=== PATIENT | female | born 1955 | race Caucasian/White ===

== ENCOUNTER 2024-12-16 10:12 | Day surgery (SDC) | payer MEDICARE, SELFPAY ==
[2024-12-16] VITALS (20 sets, daily range): BP systolic 92–176; BP diastolic 56–94; PULSE 63–89; RESP 14–20; TEMP 35.9–37.3; O2SAT 94–99; BMI 20.6
--- NOTE | 2024-12-16 12:10 | W.PM.H&PU ---
History & Physical Update History & Physical Update H&P Reviewed and patient assessed: No changes noted
[2024-12-16] MEDS: ACETAMINOPHEN 500 MG TABLET 1000 MG PO ×2 (12:12→18:37)
[2024-12-16] MEDS: OXYCODONE (CR) 10 MG TAB.ER.12H PO (12:12)
[2024-12-16] MEDS: fentaNYL 100 MCG/2 ML inj IVP (13:07)
[2024-12-16] MEDS: MIDAZOLAM HCL 1 MG/ML inj IVP (13:07)
--- NOTE | 2024-12-16 13:17 | SUR.PREOP ---
TIME?OUT:?1307, left knee PT/RN/MDA?VERIFICATION?OF?SURGICAL?SITE,?PROCEDURE,?AND?CONSENT OBTAINED?PRIOR?TO?INVASIVE?PROCEDURE.
[2024-12-16] MEDS: CEFAZOLIN 2 GM in 0.9 % SODIUM CHLORIDE Mini-bag 100 ML IVPB (13:30)
[2024-12-16] MEDS: TRANEXAMIC ACID 100 MG/ML INJ 1000 MG IV (13:30)
--- NOTE | 2024-12-16 13:31 | CRLHL7_ITS ---
For Patients: As a result of the Cures Act, medical imaging exams and procedure reports are released immediately into your electronic medical record. You may view this report before your referring provider. If you have questions, please contact your health care provider. Indication: Status post knee arthroplasty. Technique: AP and lateral views of the left knee. Comparison: Left knee radiograph 11/26/2024 Findings: Interval placement of left 3 component cemented knee arthroplasty. Postoperative changes within the left knee soft tissues. No other retained radiopaque metallic surgical foreign body. Impression: Status post placement of left knee replacement. Dictated by Akin Rodríguez MD @ 12/17/2024 2:26:20 PM (Electronically Signed)
[2024-12-16] MEDS: LACTATED RINGERS 1000 ML 1,000 ML 100 ML IV (13:55)
--- NOTE | 2024-12-16 14:12 | P.NB_ITS ---
Nerve Block Nerve Block Time Seen by Provider: 13:10 Date Seen: 12/16/24 Type of block requested by surgeon for post-operative analgesia: geniculars Side: left Time out performed: Yes Verification of patient name: Yes Verification of date of : Yes Site marking: site marked Name of person performing procedure: Hector Continuous monitoring Was continuous monitoring of O2 sat, B/P, cardiac rehab nurse, recorded every 15 minutes?: Yes Procedure Checklist: sterile prep, needles and gloves Ultrasound guided. Images saved: Yes Medications given in 5ml increments after negative aspiration: Marcaine %: 0.25 mL: 9 Needle gauge: 25 Patient tolerated procedure well: Yes Block Charges Block Charge (with Pro Fee): Genicular Nerve Block
--- NOTE | 2024-12-16 14:13 | P.NB_ITS ---
Nerve Block Nerve Block Time Seen by Provider: 13:10 Date Seen: 12/16/24 Type of block requested by surgeon for post-operative analgesia: adductor canal Side: left Time out performed: Yes Verification of patient name: Yes Verification of date of : Yes Site marking: site marked Name of person performing procedure: Hector Continuous monitoring Was continuous monitoring of O2 sat, B/P, radiation monitor, recorded every 15 minutes?: Yes Procedure Checklist: sterile prep, needles and gloves Ultrasound guided. Images saved: Yes Medications given in 5ml increments after negative aspiration: Marcaine %: 0.25 mL: 15 Needle gauge: 20 Precedex (mcg): 25 Patient tolerated procedure well: Yes Block Charges Block Charge (with Pro Fee): Femoral Nerve Use of Ultrasound Machine for Block: Yes- US Guidance/pain block
--- NOTE | 2024-12-16 14:13 | P.ANES_ITS ---
Anesthesia Charges Start Date/Time Anesthesia Start Date: 12/16/24 Anesthesia Start Time: 13:16 Stop Date/Time Anesthesia Stop Date: 12/16/24 Anesthesia Stop Time: 15:33 Summary Extremes of Age - Over 70 or under 1: MDA Coding CPT Codes CPT Codes: ANESTH KNEE ARTHROPLASTY - 46511 ([id number]) P2 - PATIENT W/MILD SYST DISEASE, QK - TAX COMMISSIONER 2-4 CNCRNT ANES PROC, QX - POULTRY FEED SUPERVISOR SVC W/ MD MED DIRECTION Additional Codes: Summary - Extremes of Age - Over 70 or under 1: MDA ([id number])
--- NOTE | 2024-12-16 14:13 | W.ANESCHARGE ---
Anesthesia Charges Start Date/Time Anesthesia Start Date: 12/16/24 Anesthesia Start Time: 13:16 Stop Date/Time Anesthesia Stop Date: 12/16/24 Anesthesia Stop Time: 15:33 Summary Extremes of Age - Over 70 or under 1: MDA Coding CPT Codes CPT Codes: ANESTH KNEE ARTHROPLASTY - 75482 ([id number]) P2 - PATIENT W/MILD SYST DISEASE, QK - HALL WORKER 2-4 CNCRNT ANES PROC, QX - DIRECT ENTRY MIDWIFE SVC W/ MD MED DIRECTION Additional Codes: Summary - Extremes of Age - Over 70 or under 1: MDA ([id number])
--- NOTE | 2024-12-16 15:00 | PM.ORPRC ---
Procedure Note Date of procedure: 12/16/24 Procedure: PREOPERATIVE DIAGNOSIS: 1. Left knee osteoarthritis, primary, severe POSTOPERATIVE DIAGNOSIS: 1. Left knee osteoarthritis, primary, severe PROCEDURE: 1. Left total knee arthroplasty - subvastus; modified 22 - 66% added time and difficulty for this case due to extremely poor/soft bone quality which required extreme caution so as not to avulse collateral ligaments and to maintain structure for TKA implants. In addition, this required stemming both the femoral and tibial component to allow reinforced support for the extremely soft bone. SURGEON: Stanislav Hearn MD. PRINCIPAL NETWORK ENGINEER: PATRICIA Waldron - Of note, a skilled assistant county attorney was critical for this case to aid in patient positioning, tissue retraction, limb manipulation/positioning, and closure. ANESTHESIA: Spinal anesthetic EBL: 50ml IMPLANTS: DePuy J&J all cemented TKA - Attune PS femur size 4 (14 x 50 mm stem) Size 3 tibia (30g89ra stem) 5 poly spacer 35mm patella TOURNIQUET: 100 min at 250 torr COMPLICATIONS: None evident INDICATIONS: The patient is a pleasant 69-year-old female who has experienced severe left knee pain and difficulty bearing weight. Workup included x-rays which revealed severe osteoarthrosis in the knee. Given the deformity, the dysfunction, and the pain, as well as the failure of nonoperative management, recommendation was made for surgery. FINDINGS: Full-thickness chondral loss diffusely throughout the patellofemoral compartment. To lesser degree medial and lateral compartments, but there was significant discoloration/darkening to the femoral and tibial intra-articular surfaces including the articular cartilage and meniscus and even some of the capsule. The anterior distal femoral cortex was concave due to the severe patellofemoral wear. The patella was extremely thin measuring just 10 mm the far medial facet, 16 in the median ridge and 14 on the lateral facet prior to preparation. The cancellous bone and even the cortical bone after making the femoral and tibial cuts was extremely soft and more like a sponge. It did not have great structural integrity, thus the decision for stemming both the femoral and tibial components. DESCRIPTION OF PROCEDURE: Following a thorough discussion of risks, benefits, and alternatives consent was obtained and the left knee was marked. The patient was brought to the operating room and placed supine on the operating table. Induction of anesthesia was undertaken. 1 g IV Ancef and 1 g tranexamic acid was administered within 1 hr of incision preoperatively. Proper time-out was performed identifying proper patient, site, procedure. The operative extremity was prepped and draped in the appropriate sterile fashion using ChloraPrep after the patient was positioned supine with all bony prominences well padded. A longitudinal, anterior, midline skin incision was made starting approximately 3cm proximal to the superior pole of the patella and advanced distal to the tibial tubercle. A subvastus approach was utilized. A medial subperiosteal sleeve was created with knife, russo elevator and curved osteotome. The retropatellar fatpad was resected and the synovium in the suprapatellar pouch excised to visualize the anterior femoral cortex. The patella was initially measured and found have a thickness consistent with that noted above (16 mm at the thickest portion and 10 mm on the medial facet). It was resected back to approximately 13.5 mm. It was sized to be a best fit with as noted above. This was drilled, trial placed. All trials were placed and found to have an excellent stability and balance. Femoral preparation was performed via an intramedullary guide. Step drill allowed access into the femoral canal. The distal cutting guide was placed with 5? of valgus and 10 mm cut on the distal femur. Femur was sized using a posterior referencing guide as well as referencing trans epicondylar axis and Whitesides line in 5 ? of external rotation. This found have a best fit with the sizing noted above. The 4 in 1 cutting block was then placed, and the distal femur shaped accordingly. Initially, the standard box cut was created but the cancellous bone was found to be tremendously soft and more like a sponge. Therefore, decision was made to perform stemmed femoral and tibial components. The revision femoral system was then applied, cut, and prepared with the plan for a 50 mm by 14 mm diameter stem. We turned our attention to the proximal tibia. Extramedullary guide was utilized for cutting with the goal of being 90 degree cut from the mechanical axis of the tibia in the varus/valgus plane utilizing tibial crest as the primary alignment. Initially a 4 mm resection was performed from the medial tibial plateau. Ultimately, balancing was achieved in both flexion and extension in both varus and valgus. The knee was able to achieve full extension as well comfortably. Again because of the extremely soft, spongy cancellous and even cortical bone after creating the proximal tibial cut, stemmed tibial component was prepared. At this stage, trial implants were removed, the knee was thoroughly irrigated with normal saline, and the cement was mixed. After irrigation, the knee was thoroughly dried, and cement placed, with the real tibial and femoral implants placed along with the patella. Trial poly spacer was placed and confirmed to have excellent range of motion and full extension, and the real poly spacer opened and inserted. All extra cement was removed, and a 3 min Betadine soak performed. Finally, a final irrigation round with normal saline was performed. Closure performed with 0 PDS and #0 Stratafix for the quad tendon/retinaculum. 2-0 Vicryl/Stratafix for the subcutaneous and 4-0 Monocryl for subcuticular closure. Dressings were applied and the patient was awoken from anesthesia after the tourniquet deflated and transferred the PACU in stable condition. A skilled assistant county attorney was critical for this case to aid in patient positioning, tissue retraction, bone exposure, limb manipulation/positioning, patient safety, and closure. * again, 66% added time and difficulty for this case due to extremely poor/soft bone quality which required extreme caution so as not to avulse collateral ligaments and to maintain structure for TKA implants. In addition, this required stemming both the femoral and tibial component to allow reinforced support for the extremely soft bone. PLAN: 1. Weight bear as tolerated operative extremity. 2. 23 hr perioperative antibiotics. 3. Ice. 4. PT/OT consults for ambulation assistance/mobility education. 5. Social work consult for discharge planning. 6. DVT prophylaxis with at SCDs and aspirin twice daily.
--- NOTE | 2024-12-16 15:34 | P.ANES_ITS ---
Anesthesia Charges Start Date/Time Anesthesia Start Date: 12/16/24 Anesthesia Start Time: 13:16 Stop Date/Time Anesthesia Stop Date: 12/16/24 Anesthesia Stop Time: 15:33 Summary Extremes of Age - Over 70 or under 1: RADIO COMMENTATOR Coding CPT Codes CPT Codes: ANESTH KNEE ARTHROPLASTY - 24120 ([id number]) P2 - PATIENT W/MILD SYST DISEASE, QX - RADIO COMMENTATOR SVC W/ MD MED DIRECTION, QK - COMPUTERIZED MACHINE FABRIC CUTTER 2-4 CNCRNT ANES PROC Additional Codes: Summary - Extremes of Age - Over 70 or under 1: RADIO COMMENTATOR ([id number])
--- NOTE | 2024-12-16 15:34 | W.ANESCHARGE ---
Anesthesia Charges Start Date/Time Anesthesia Start Date: 12/16/24 Anesthesia Start Time: 13:16 Stop Date/Time Anesthesia Stop Date: 12/16/24 Anesthesia Stop Time: 15:33 Summary Extremes of Age - Over 70 or under 1: LEAD PAINTER Coding CPT Codes CPT Codes: ANESTH KNEE ARTHROPLASTY - 90256 ([id number]) P2 - PATIENT W/MILD SYST DISEASE, QX - LEAD PAINTER SVC W/ MD MED DIRECTION, QK - PRECISION MACHINING INSTRUCTOR 2-4 CNCRNT ANES PROC Additional Codes: Summary - Extremes of Age - Over 70 or under 1: LEAD PAINTER ([id number])
[2024-12-16] MEDS: OXYCODONE 5 MG TABLET PO ×2 (17:46→20:42)
[2024-12-16] MEDS: LACTATED RINGERS 1000 ML 1,000 ML 75 ML IV (18:37)
[2024-12-16] MEDS: CEFAZOLIN 1 GM in 0.9 % SODIUM CHLORIDE Mini-bag 100 ML IVPB (19:39)
[2024-12-16] MEDS: SENNOSIDES 1 TAB TABLET 2 TAB PO (20:43)
[2024-12-16] MEDS: HYDROmorphone 0.5 mg/0.5 ml inj IVP (21:57)
--- NOTE | 2024-12-16 22:25 | PM.IMCN1 ---
Date of Consult Patient: Other Consult date: 12/16/24 Requesting Physician: Orthopedics Primary Care Provider: GURWINDER He Consult Narrative Narrative: Pennie Carvajal is a 69 year old female admitted to the hospital for left total knee arthroplasty. Procedure performed by Dr. Hearn. No complications. He has requested consultation for management of medical problems postoperatively. She reports generally doing well postoperatively. She still having some affect from her spinal anesthesia and so is not return to normal sensation and motion in her lower extremities. Pain is well controlled so far. Preoperatively she reports he was doing well. Preop evaluation by her primary care provider did not show any significant concerns for the perioperative management. She has also recently seen oncology about her recent diagnosis of CLL. Not having significant symptoms or complications so is currently being monitored without treatment. She has previous history of paroxysms of AFib/a flutter. She is on Eliquis for this. Eliquis has been held for 3 and half days prior to surgery. [facility] Medical History (Updated 12/16/24 @ 22:44 by Bridger Sterling MD) CLL (chronic lymphocytic leukemia) ?C91.10 - Chronic lymphocytic leukemia of B-cell type not having achieved remission (ICD-10) Paroxysmal atrial flutter ?I48.92 - Unspecified atrial flutter (ICD-10) Tear of meniscus of left knee ?S83.207A - Unspecified tear of unspecified meniscus, current injury, left knee, initial encounter (ICD-10) Eosinophilic esophagitis ?K20.0 - Eosinophilic esophagitis (ICD-10) Leukocytosis ?D72.829 - Elevated white blood cell count, unspecified (ICD-10) Lymphocytic leukemia ?C91.90 - Lymphoid leukemia, unspecified not having achieved remission (ICD-10) Osteoporosis ?M81.0 - Age-related osteoporosis without current pathological fracture (ICD-10) Leukopenia ?D72.819 - Decreased white blood cell count, unspecified (ICD-10) Breast mass ?N63.0 - Unspecified lump in unspecified breast (ICD-10) Alopecia ?L65.9 - Nonscarring hair loss, unspecified (ICD-10) Effusion, left knee ?M25.462 - Effusion, left knee (ICD-10) Surgical History (Updated 12/16/24 @ 22:39 by Bridger Sterling MD) History of arthroplasty of left knee ?Z96.652 - Presence of left artificial knee joint (ICD-10) History of arthroscopy of left knee ?Z98.890 - Other specified postprocedural states (ICD-10) History of cardioversion (07/07/23) ?Z92.89 - Personal history of other medical treatment (ICD-10) History of esophagogastroduodenoscopy (EGD) (10/14/13) ?Z98.890 - Other specified postprocedural states (ICD-10) History of tonsillectomy and adenoidectomy ?Z90.89 - Acquired absence of other organs (ICD-10) H/O umbilical hernia repair (06/20/17) ?Z98.890 - Other specified postprocedural states (ICD-10) ?Z87.19 - Personal history of other diseases of the digestive system (ICD-10) Social History (Updated 12/16/24 @ 22:41 by Bridger Sterling MD) Narrative: She lives with her . is healthcare power of compliance attorney. She lives in a split-level home and has stairs to go up to the kitchen and living room and did go down to the lower level where she plans to live as she recovers from surgery. She has a bedroom and bathroom on that level. She drinks alcohol about 4 times a week. She does not smoke. Code status is full What is your current living situation?: I presently have a place to live Problems where you live: no known problems In the past 12 months, utilities in danger of being shut off: no In past 12 months, lack of transportation kept you from medical appts, meetings, work, or getting things needed for daily living: no In the past 12 mos, have been you worried that your food would run out before you had money to buy more?: never true In the past 12 mos, the food you bought just didn't last and you didn't have money to buy more?: never true Smoking Status: Never smoker Do you use any of these nicotine containing products: None Second hand tobacco smoke exposure: No How often do you have a drink containing alcohol: 4 or more times a week Alcohol type: beer and wine How many standard drinks containing alcohol do you have on a typical day: 1 or 2 AUDIT-C Alcohol total score: 4 Non-prescribed substance use: denies use Caffeine: Yes How often does anyone, including family, friends and others, physically hurt you: never How often does anyone, including family, friends and others, insult or talk down to you: never How often does anyone, including family, friends and others, threaten you with harm: never How often does anyone, including family, friends and others, scream or curse at you: never Meds Home Medications and Allergies Home Medications ?Medication ?Instructions ?Recorded ?Confirmed ?Type apixaban 5 mg tablet (Eliquis) 5 mg PO BID 11/26/24 12/16/24 History omeprazole 20 mg capsule,delayed 20 mg PO DAILY 12/16/24 12/16/24 History release Allergies Allergy/AdvReac Type Severity Reaction Status Date / Time No Known Drug Allergies Allergy Verified 12/16/24 10:22 Exam Narrative: Exam Narrative: She is alert and appears in no distress. She gives her own history. Oropharynx is normal. Neck is supple without jugular venous distension. She does have small palpable nodes in the supraclavicular area particularly bilaterally. Respirations are clear to auscultation. Cardiovascular: S1, S2, regular rate and rhythm. Abdomen: Bowel sounds active. Abdomen is soft without tenderness or mass. Lower extremities without edema. She has intact pulses and her sensation and motion is returning from her spinal anesthesia. Const: Vital Signs, click to edit/add: Vital Signs - 24 hr 12/16/24 10:42 12/16/24 13:10 12/16/24 15:30 Temperature 99.2 F 97.4 F L Pulse Rate 86 89 66 Pulse Rate [Right Pulse Oximeter] Respiratory Rate 20 20 16 Blood Pressure 176/94 H 144/75 H 93/56 L Blood Pressure [Le ft Arm] Pulse Oximetry 96 98 95 Oxygen Delivery Me thod Room Air Nasal Cannula Room Air Oxygen Flow Rate 2 12/16/24 15:35 12/16/24 15:40 12/16/24 15:45 Temperature Pulse Rate 67 67 70 Pulse Rate [Right Pulse Oximeter] Respiratory Rate 14 14 14 Blood Pressure 92/61 99/64 119/75 Blood Pressure [Le ft Arm] Pulse Oximetry 94 94 95 Oxygen Delivery Me thod Room Air Room Air Room Air Oxygen Flow Rate 12/16/24 15:50 12/16/24 15:55 12/16/24 16:00 Temperature 97 F L Pulse Rate 64 65 63 Pulse Rate [Right Pulse Oximeter] Respiratory Rate 14 14 14 Blood Pressure 126/73 118/71 130/77 Blood Pressure [Le ft Arm] Pulse Oximetry 95 97 97 Oxygen Delivery Me thod Room Air Room Air Room Air Oxygen Flow Rate 12/16/24 16:15 12/16/24 16:15 Temperature 96.7 F L 96.7 F L Pulse Rate 66 Pulse Rate [Right Pulse Oximeter] 66 Respiratory Rate 16 16 Blood Pressure 145/80 H Blood Pressure [Le ft Arm] 145/80 H Pulse Oximetry 99 99 Oxygen Delivery Me thod Room Air Room Air Oxygen Flow Rate Documenting provider has reviewed patient's vital signs: yes Assessment and Plan Assessment and plan (1) History of arthroplasty of left knee: Problem comment: 12/16/2024, Dr. Hearn, no complications Status: Acute (2) Paroxysmal atrial flutter: Problem comment: Resume Eliquis postop day 1 in the morning. Status: Acute (3) CLL (chronic lymphocytic leukemia): Status: Acute Plan 69-year-old female admitted for knee arthroplasty. Will monitor complications of surgery, routine management of pain and routine therapy. Resume Eliquis if no significant bleeding problems postop day 1. Anticipate discharge to home with and daughter tomorrow. Total Time Spent Total Time Spent: Total time spent today is 40 minutes in reviewing outside records and discussing with patient and family ongoing evaluation and management of hip surgery, CLL, paroxysmal atrial flutter and other postoperative concerns
--- NOTE | 2024-12-16 22:58 | PC.NURSE ---
Pt doing well. Admitted to the floor at 1610. VSS. Pain controlled with ice and PRN medications. Pt denies nausea, tolerating oral intake well, saline locked. Pt ambulated to bathroom with assisted of two, tolerated well. Voiding without problems. Dressing had mild bloody drainage on bandage, no further drainage at this time. Resting well.
[2024-12-17 00:11] VITALS: BP 124/64; PULSE 73; RESP 16; TEMP 37.2; O2SAT 96
[2024-12-17] MEDS: ACETAMINOPHEN 500 MG TABLET 1000 MG PO ×2 (00:23→05:57)
[2024-12-17] MEDS: OXYCODONE 5 MG TABLET PO ×5 (00:24→08:38)
[2024-12-17] MEDS: HYDROmorphone 0.5 mg/0.5 ml inj IVP (02:55)
[2024-12-17] MEDS: CEFAZOLIN 1 GM in 0.9 % SODIUM CHLORIDE Mini-bag 100 ML IVPB (02:59)
[2024-12-17 03:00] VITALS: BP 126/81; PULSE 71; RESP 16; TEMP 36.6; O2SAT 97
[2024-12-17 06:26] LABS: Basophils Percent Auto 0.1 % (0.0-3.0); Eosinophils Percent Auto 0.4 % (0.0-7.0); Hematocrit 33.6 % (33.0-51.0); Hemoglobin* 11.1 gm/dL (12.0-16.0); Immature Granulocytes Pct Auto 0.2 %; Mean Corpuscular HGB Conc 33 gm/dL (32-36); Mean Corpuscular Hemoglobin 29 pg (26-34); Mean Corpuscular Volume 89 fL (80-100); Monocytes Percent Auto 4.2 % (0.0-11.0); Neutrophils Percent Auto 20.1 % (42.0-72.0); Platelet Count* 363 K/uL (140-440); RDW Coefficient of Variation % 14.4 % (11.5-15.5); Red Blood Count 3.79 m/uL (4.00-5.20)
[2024-12-17 06:41] LABS: Potassium* 4.1 mmol/L (3.6-5.1); Sodium* 134 mmol/L (135-149)
[2024-12-17] MEDS: OMEPRAZOLE 20 MG CAPSULE DR PO (06:43)
[2024-12-17 06:44] LABS: Blood Urea Nitrogen* 17 mg/dL (7-30); Creatinine* 0.6 mg/dL (0.5-1.5); Estimated Glomerular Filt Rate 97 ml/min
[2024-12-17 06:59] LABS: White Blood Count* 30.44 K/uL (4.50-11.00)
[2024-12-17 07:00] VITALS: BP 123/65; PULSE 83; RESP 16; TEMP 36.8; O2SAT 100
[2024-12-17 07:00] LABS: Slide Review Reflex Yes
[2024-12-17 07:02] LABS: Slide Review Acceptable Review (Acceptable)
--- NOTE | 2024-12-17 07:25 | PC.NURSE ---
End of shift report [id number]: VSS. Afebrile. Rates pain from a 2-7, pain meds offered and given with relief. Denies nausea. Tolerating reg diet. Left knee CMS is intact. Dressing is dry and intact. Scant amount of drainage noted at beginning of shift, area outlined on dressing. Drainage remained in outlined area throughout the shift. Ambulates A1, GB, W. Intermittent ice applied. Call light within reach.?
[2024-12-17] MEDS: SENNOSIDES 1 TAB TABLET 2 TAB PO (08:38)
[2024-12-17] MEDS: APIXABAN 5 MG TABLET PO (08:39)
[2024-12-17] MEDS: ONDANSETRON 2 MG/ML inj 4 MG IVP (09:33)
--- NOTE | 2024-12-17 09:52 | PM.ORPN ---
Subjective Subjective Date Seen: 12/17/24 Principal diagnosis: Status postop day 1 left total knee arthroplasty Interval history: Patient reports doing okay. No acute events over night. Pain managed with scheduled and PRN medications, ice. DVT prophylaxis: Apixaban 5 mg twice daily, due to paroxysmal AFib history, SCDs, walking. Denies fevers, chills, aches, N/V, CP, SOB/MEREDITH, or lightheadedness. Ortho Exam Narrative Exam Narrative: -Patient appears comfortable; no apparent acute distress -Alert and oriented times 3 -Operative knee mildly swollen; soft tissues supple; no ecchymosis; no erythematous streaking Warmth appropriate -Surgical dressing shows dried blood lower lateral aspect of the bandage, mid bandage, and more proximal aspect of the bandage. Dressing appears to be intact. -Bilateral calfs soft; no significant swelling, edema, tenderness, erythema, discoloration, warmth, or palpable cords -2+ DP/PT pulses, intact dermatomes and myotomes distally (5/5 strength) Const Vital Signs, click to edit/add: Vital Signs - 24 hr 12/16/24 10:42 12/16/24 13:10 12/16/24 15:30 Temperature 99.2 F 97.4 F L Pulse Rate 86 89 66 Pulse Rate [Right Pulse Oximeter] Respiratory Rate 20 20 16 Blood Pressure 176/94 H 144/75 H 93/56 L Blood Pressure [Left Arm] Pulse Oximetry 96 98 95 Oxygen Delivery Method Room Air Nasal Cannula Room Air Oxygen Flow Rate 2 12/16/24 15:35 12/16/24 15:40 12/16/24 15:45 Temperature Pulse Rate 67 67 70 Pulse Rate [Right Pulse Oximeter] Respiratory Rate 14 14 14 Blood Pressure 92/61 99/64 119/75 Blood Pressure [Left Arm] Pulse Oximetry 94 94 95 Oxygen Delivery Method Room Air Room Air Room Air Oxygen Flow Rate 12/16/24 15:50 12/16/24 15:55 12/16/24 16:00 Temperature 97 F L Pulse Rate 64 65 63 Pulse Rate [Right Pulse Oximeter] Respiratory Rate 14 14 14 Blood Pressure 126/73 118/71 130/77 Blood Pressure [Left Arm] Pulse Oximetry 95 97 97 Oxygen Delivery Method Room Air Room Air Room Air Oxygen Flow Rate 12/16/24 16:15 12/16/24 16:15 12/16/24 16:30 Temperature 96.7 F L 96.7 F L Pulse Rate 66 65 Pulse Rate [Right Pulse Oximeter] 66 Respiratory Rate 16 16 Blood Pressure 145/80 H 138/74 Blood Pressure [Left Arm] 145/80 H Pulse Oximetry 99 99 Oxygen Delivery Method Room Air Room Air Oxygen Flow Rate 12/16/24 16:45 12/16/24 17:00 12/16/24 17:15 Temperature Pulse Rate 69 69 75 Pulse Rate [Right Pulse Oximeter] Respiratory Rate Blood Pressure 144/68 H 155/77 H 145/72 H Blood Pressure [Left Arm] Pulse Oximetry Oxygen Delivery Method Oxygen Flow Rate 12/16/24 17:45 12/16/24 18:35 12/16/24 19:35 Temperature Pulse Rate 75 84 Pulse Rate [Right Pulse Oximeter] Respiratory Rate 16 Blood Pressure 159/83 H 132/70 132/75 Blood Pressure [Left Arm] Pulse Oximetry 97 Oxygen Delivery Method Oxygen Flow Rate 12/16/24 20:35 12/16/24 21:35 12/16/24 23:00 Temperature 97.8 F Pulse Rate 77 Pulse Rate [Right Pulse Oximeter] 73 Respiratory Rate 16 16 Blood Pressure 108/65 115/72 Blood Pressure [Left Arm] Pulse Oximetry 98 Oxygen Delivery Method Oxygen Flow Rate 12/16/24 23:00 12/17/24 00:11 12/17/24 03:00 Temperature 99 F 98 F Pulse Rate Pulse Rate [Right Pulse Oximeter] 73 71 Respiratory Rate 16 16 16 Blood Pressure Blood Pressure [Left Arm] 124/64 126/81 Pulse Oximetry 96 96 97 Oxygen Delivery Method Room Air Room Air Room Air Oxygen Flow Rate 12/17/24 07:00 12/17/24 07:00 12/17/24 07:00 Temperature 98.3 F Pulse Rate Pulse Rate [Right Pulse Oximeter] 83 83 Respiratory Rate 16 16 16 Blood Pressure Blood Pressure [Left Arm] 123/65 Pulse Oximetry 100 100 Oxygen Delivery Method Room Air Room Air Oxygen Flow Rate Assessment and Plan Assessment and plan (1) History of arthroplasty of left knee: Problem details: 12/16/2024, Dr. Hearn, no complications Status: Acute (2) Paroxysmal atrial flutter: Problem details: Resume Eliquis postop day 1 in the morning. Status: Acute (3) CLL (chronic lymphocytic leukemia): Status: Acute Plan - Complete 23 hour perioperative antibiotics. - PT/OT consult for education and assistance. - Social work consult for discharge planning - Prescribed analgesics as needed - DVT prophylaxis: Continue apixaban 5 mg twice daily, walking, and SCDs - remove bandage after 5 days, report to us if increased bleeding/drainage on the bandage - Anticipation is for discharge to home with family today 12/17/2024 if the patient remains medically stable, pain is controlled, and they are safe with mobilization.
--- NOTE | 2024-12-17 10:14 | W.PM.CROSSCO ---
Subjective Subjective Principal diagnosis: Status postop day 1 left total knee arthroplasty Interval history: I spoke with nursing staff. Patient is doing well. I have reviewed her labs from this morning. She has CLL. On her preop labs on 12/09/24, her CBC showed leukocytes of 35.7, today they are 22.8, stable and improving. Nothing further needs to happen before discharge today. Follow up as previously scheduled as outpatient for CLL.
--- NOTE | 2024-12-17 11:29 | PC.NURSE ---
Discharge: patient pleasant and cooperative. VSS. RA tolerating a reg diet. Dressing to knee C/D/I, active ice to OP site. PRN pain meds administered prior to therapies. Patient became nauseous and had two emesis during therapy. Zofran administered w/relief. Discharged today at 1100 to home accompanied by spouse. IV removed intact. Discharge instructions given and signed, patient verbalized understanding. Belongings sheet signed.
== END 2024-12-17 11:00 | disposition home or self-care (01) ==
LOC: OR 10:17 → MEDSURG 10:17
PROVIDERS: PCP Physician Assistant; Visit Provider Orthopaedic Surgery Sports Medicine
PROC: (CPT 27447; principal; 2024-12-16 12:15)
DX: M17.12 Unilateral primary osteoarthritis, left knee (principal); G89.18 Other acute postprocedural pain; I48.0 Paroxysmal atrial fibrillation; Z79.01 Long term (current) use of anticoagulants; I48.92 Unspecified atrial flutter; C91.10 Chronic lymphocytic leukemia of B-cell type not having achieved remission
CPT/HCPCS: 27447; 01402; 36415; 64447; 64454; 73560; 76942; 82565; 84132; 84295; 84520; 85025; 97110; 97116; 97162; 97165; 97530; 97535; 99100; A9270; C1776; J0665; J0690; J1100; J1171; J2250; J2371; J2405; J2704; J3010; J7120

== ENCOUNTER 2025-02-24 09:38 | Day surgery (SDC) | payer MEDICARE, SELFPAY ==
[2025-02-24] VITALS (26 sets, daily range): BP systolic 94–160; BP diastolic 60–87; PULSE 69–95; RESP 14–17; TEMP 36.1–37.2; O2SAT 95–100; BMI 18.8
[2025-02-24] MEDS: LACTATED RINGERS 1000 ML 1,000 ML 100 ML IV ×3 (10:38→13:45)
[2025-02-24] MEDS: SODIUM CHLORIDE 0.9 % (FLUSH) 10 ML SYRINGE IVF (10:38)
[2025-02-24] MEDS: OXYCODONE (CR) 10 MG TAB.ER.12H PO (10:38)
[2025-02-24] MEDS: ACETAMINOPHEN 500 MG TABLET 1000 MG PO ×3 (10:38→22:34)
[2025-02-24] MEDS: MIDAZOLAM HCL 1 MG/ML inj IVP (10:45)
--- NOTE | 2025-02-24 10:54 | SUR.PREOP ---
TIME?OUT:?1045 PT/RN/MDA?VERIFICATION?OF?SURGICAL?SITE,?PROCEDURE,?AND?CONSENT OBTAINED?PRIOR?TO?INVASIVE?PROCEDURE.
--- NOTE | 2025-02-24 11:10 | W.PM.H&PU ---
History & Physical Update History & Physical Update H&P Reviewed and patient assessed: No changes noted
--- NOTE | 2025-02-24 11:11 | CRLHL7_ITS ---
For Patients: As a result of the Cures Act, medical imaging exams and procedure reports are released immediately into your electronic medical record. You may view this report before your referring provider. If you have questions, please contact your health care provider. Indication: POSTOP Technique: Two views right knee Findings/Impression: Hardware from a right total knee arthroplasty is in satisfactory position. Bone alignment is normal. No sign of acute fracture. Postop changes are within normal limits. Dictated by Eber Harley MD @ 02/25/2025 11:16:04 AM (Electronically Signed)
[2025-02-24] MEDS: TRANEXAMIC ACID 100 MG/ML INJ 1000 MG IV (11:14)
--- NOTE | 2025-02-24 11:23 | W.PM.NB ---
Nerve Block Nerve Block Time Seen by Provider: 10:50 Date Seen: 02/24/25 Type of block requested by surgeon for post-operative analgesia: adductor canal Side: right Time out performed: Yes Verification of patient name: Yes Verification of date of : Yes Site marking: site marked Name of person performing procedure: Hector Continuous monitoring Was continuous monitoring of O2 sat, B/P, electronic device monitor, recorded every 15 minutes?: Yes Procedure Checklist: sterile prep, needles and gloves Ultrasound guided. Images saved: Yes Medications given in 5ml increments after negative aspiration: Marcaine %: 0.25 mL: 15 Needle gauge: 20 Precedex (mcg): 25 Patient tolerated procedure well: Yes Block Charges Block Charge (with Pro Fee): Femoral Nerve Use of Ultrasound Machine for Block: Yes- US Guidance/pain block
--- NOTE | 2025-02-24 11:23 | W.PM.NB ---
Nerve Block Nerve Block Time Seen by Provider: 10:50 Date Seen: 02/24/25 Type of block requested by surgeon for post-operative analgesia: geniculars Side: right Time out performed: Yes Verification of patient name: Yes Verification of date of : Yes Site marking: site marked Name of person performing procedure: Hector Continuous monitoring Was continuous monitoring of O2 sat, B/P, cardiac care nurse, recorded every 15 minutes?: Yes Procedure Checklist: sterile prep, needles and gloves Ultrasound guided. Images saved: Yes Medications given in 5ml increments after negative aspiration: Marcaine %: 0.25 mL: 9 Needle gauge: 25 Patient tolerated procedure well: Yes Block Charges Block Charge (with Pro Fee): Genicular Nerve Block
--- NOTE | 2025-02-24 11:24 | P.ANES_ITS ---
Anesthesia Charges Start Date/Time Anesthesia Start Date: 02/24/25 Anesthesia Start Time: 10:53 Stop Date/Time Anesthesia Stop Date: 02/24/25 Anesthesia Stop Time: 13:23 Summary Extremes of Age - Over 70 or under 1: MDA Coding CPT Codes CPT Codes: ANESTH KNEE ARTHROPLASTY - 41371 ([id number]) P2 - PATIENT W/MILD SYST DISEASE, QK - DOOR REPAIRER BUS 2-4 CNCRNT ANES PROC, QX - PRE KINDERGARTEN TEACHER SVC W/ MD MED DIRECTION Additional Codes: Summary - Extremes of Age - Over 70 or under 1: MDA ([id number])
--- NOTE | 2025-02-24 11:24 | W.ANESCHARGE ---
Anesthesia Charges Start Date/Time Anesthesia Start Date: 02/24/25 Anesthesia Start Time: 10:53 Stop Date/Time Anesthesia Stop Date: 02/24/25 Anesthesia Stop Time: 13:23 Summary Extremes of Age - Over 70 or under 1: MDA Coding CPT Codes CPT Codes: ANESTH KNEE ARTHROPLASTY - 20231 ([id number]) P2 - PATIENT W/MILD SYST DISEASE, QK - OPTICAL LENS MANUFACTURING TECH 2-4 CNCRNT ANES PROC, QX - CRIMINAL LAWYER SVC W/ MD MED DIRECTION Additional Codes: Summary - Extremes of Age - Over 70 or under 1: MDA ([id number])
--- NOTE | 2025-02-24 12:30 | PM.ORPRC ---
Procedure Note Date of procedure: 02/24/25 Procedure: PREOPERATIVE DIAGNOSIS: 1. Right knee osteoarthritis, primary, severe POSTOPERATIVE DIAGNOSIS: 1. Right knee osteoarthritis, primary, severe PROCEDURE: 1. Right total knee arthroplasty - subvastus; modifier 22. 50% added difficulty for this case due to stemming of the femoral and tibial components. This was warranted because of poor bone quality and erosion of the anterior femoral cortex due to the severe patellofemoral wear. The stemmed components required increased time, instrumentation, caution, and difficulty given the patient's small stature. SURGEON: Stanislav Hearn MD. APPIAN BPM DEVELOPER: PATRICIA Waldron - Of note, a skilled liaison inspection laboratory assistant was critical for this case to aid in patient positioning, tissue retraction, limb manipulation/positioning, and closure. ANESTHESIA: Spinal anesthetic IMPLANTS: DePuy J&J all cemented TKA - Attune PS revision femur CR as component size 5 with (14 x 50 mm stem) Revision tibial component size 3 with ([id number] stem) 5 mm poly spacer 35 mm patella TOURNIQUET: 90 minutes at 225 torr EBL: 50 ml COMPLICATIONS: None evident INDICATIONS: The patient is a pleasant 69-year-old female who has experienced severe right knee pain and difficulty bearing weight. Workup included x-rays which revealed severe osteoarthrosis in the knee. Given the deformity, the dysfunction, and the pain, as well as the failure of nonoperative management, recommendation was made for surgery. FINDINGS: Severe patellofemoral osteoarthrosis with significant erosion of the patella and erosion of the anterior femoral cortex. Notable degenerative meniscus pathology both medial and lateral. To lesser degree chondromalacia medial and lateral compartments. Heme arthrosis found upon entering the knee joint. Significant synovitis noted throughout the knee as well. Very poor bone quality warranting stems for both the femur and tibial component. DESCRIPTION OF PROCEDURE: Following a thorough discussion of risks, benefits, and alternatives consent was obtained and the right knee was marked. The patient was brought to the operating room and placed supine on the operating table. Induction of anesthesia was undertaken. 1 g IV Ancef and 1 g tranexamic acid was administered within 1 hr of incision preoperatively. Proper time-out was performed identifying proper patient, site, procedure. The operative extremity was prepped and draped in the appropriate sterile fashion using ChloraPrep after the patient was positioned supine with all bony prominences well padded. A longitudinal, anterior, midline skin incision was made starting approximately 3cm proximal to the superior pole of the patella and advanced distal to the tibial tubercle. A subvastus approach was utilized. A medial subperiosteal sleeve was created with knife, russo elevator and curved osteotome. The retropatellar fatpad was resected and the synovium in the suprapatellar pouch excised to visualize the anterior femoral cortex. Femoral preparation was performed via an intramedullary guide. Step drill allowed access into the femoral canal. The distal cutting guide was placed with 5? of valgus and 10 mm cut on the distal femur. Femur was sized using a posterior referencing guide in 3? of external rotation. This found have a best fit with the sizing noted above. The 4 in 1 cutting block was then placed, and the distal femur shaped accordingly. The box cut was then created and the trial implant inserted to confirm appropriate fit. We turned our attention to the proximal tibia. Extramedullary guide was utilized for cutting with the goal of being 90 degree cut from the mechanical axis of the tibia in the varus/valgus plane utilizing tibial crest as the primary alignment. Initially a 3 mm resection was performed from the medial tibial plateau. An additional 4 mm to require resection to a true appropriate balance in both flexion and extension. Ultimately, balancing was achieved in both flexion and extension in both varus and valgus. The knee was able to achieve full extension as well comfortably. The patella was initially measured and found have a thickness of 15 mm. It was resected back to approximately 12.5 mm. It was sized to be a best fit with as noted above. This was drilled, trial placed. All trials were placed and found to have an excellent stability and balance. At this stage, trial implants were removed, the knee was thoroughly irrigated with normal saline, and the cement was mixed. After irrigation, the knee was thoroughly dried, and cement placed, with the real tibial and femoral implants placed along with the patella. Trial poly spacer was placed and confirmed to have excellent range of motion and full extension, and the real poly spacer opened and inserted. All extra cement was removed, and a 3 min Betadine soak performed. Finally, a final irrigation round with normal saline was performed. Closure performed with 0 Vicryl and #0 Stratafix for the quad tendon/retinaculum. 2-0 Vicryl for the subcutaneous and 4-0 Stratafix for subcuticular closure. Dressings were applied and the patient was awoken from anesthesia after the tourniquet deflated and transferred the PACU in stable condition. A skilled liaison inspection laboratory assistant was critical for this case to aid in patient positioning, tissue retraction, bone exposure, limb manipulation/positioning, patient safety, and closure. * Again, 50% added difficulty for this case due to stemming of the femoral and tibial components. This was warranted because of poor bone quality and erosion of the anterior femoral cortex due to the severe patellofemoral wear. The stemmed components required increased time, instrumentation, caution, and difficulty given the patient's small stature. PLAN: 1. Weight bear as tolerated operative extremity. 2. 23 hr perioperative antibiotics. 3. Ice. 4. PT/OT consults for ambulation assistance/mobility education. 5. Social work consult for discharge planning. 6. DVT prophylaxis with at SCDs and aspirin twice daily.
--- NOTE | 2025-02-24 13:24 | P.ANES_ITS ---
Anesthesia Charges Start Date/Time Anesthesia Start Date: 02/24/25 Anesthesia Start Time: 10:53 Stop Date/Time Anesthesia Stop Date: 02/24/25 Anesthesia Stop Time: 13:23 Coding CPT Codes CPT Codes: ANESTH KNEE ARTHROPLASTY - 75031 ([id number]) P2 - PATIENT W/MILD SYST DISEASE, QK - FARROWING MANAGER 2-4 CNCRNT ANES PROC, QX - RAMP SUPERVISOR SVC W/ MD MED DIRECTION
--- NOTE | 2025-02-24 13:24 | W.ANESCHARGE ---
Anesthesia Charges Start Date/Time Anesthesia Start Date: 02/24/25 Anesthesia Start Time: 10:53 Stop Date/Time Anesthesia Stop Date: 02/24/25 Anesthesia Stop Time: 13:23 Coding CPT Codes CPT Codes: ANESTH KNEE ARTHROPLASTY - 98432 ([id number]) P2 - PATIENT W/MILD SYST DISEASE, QK - CAR HOSTLER 2-4 CNCRNT ANES PROC, QX - HEATING AND VENTILATING DRAFTER SVC W/ MD MED DIRECTION
--- NOTE | 2025-02-24 15:20 | P.IMCN_ITS ---
Date of Consult Patient: Other ([place]) Consult date: 03/26/25 Requesting Physician: Orthopedics Primary Care Provider: GURWINDER He Consult Narrative Reason for consult: afib, CLL Narrative: Pennie Carvajal is a 69 year old female with known CLL and atrial fibrillation who underwent an elective right total knee arthroplasty by Dr. Hearn today for severe osteoarthritis. postoperatively she is feeling more pain than she did with her left total knee arthroplasty 10 weeks ago. She is not nauseous and otherwise has no complaints. In between the surgeries she has been doing well and has not had any new medications, allergies, or diagnoses. Her daughter, India Ryder, is here with her today. She saw her oncologist in November prior to her other knee surgery and the plan is for her to get both knees replaced and then see her oncologist in the fall to start treatment for CLL. Review of Systems Status of ROS: Reports: 6 or more systems reviewed and unremarkable except as noted in History and below [facility] Medical History Osteoarthritis of right knee ?M17.11 - Unilateral primary osteoarthritis, right knee (ICD-10) CLL (chronic lymphocytic leukemia) ?C91.10 - Chronic lymphocytic leukemia of B-cell type not having achieved remission (ICD-10) Paroxysmal atrial flutter ?I48.92 - Unspecified atrial flutter (ICD-10) Tear of meniscus of left knee ?S83.207A - Unspecified tear of unspecified meniscus, current injury, left knee, initial encounter (ICD-10) Eosinophilic esophagitis ?K20.0 - Eosinophilic esophagitis (ICD-10) Leukocytosis ?D72.829 - Elevated white blood cell count, unspecified (ICD-10) Lymphocytic leukemia ?C91.90 - Lymphoid leukemia, unspecified not having achieved remission (ICD- 10) Osteoporosis ?M81.0 - Age-related osteoporosis without current pathological fracture (ICD- 10) Leukopenia ?D72.819 - Decreased white blood cell count, unspecified (ICD-10) Breast mass ?N63.0 - Unspecified lump in unspecified breast (ICD-10) Alopecia ?L65.9 - Nonscarring hair loss, unspecified (ICD-10) Effusion, left knee ?M25.462 - Effusion, left knee (ICD-10) Surgical History History of arthroplasty of left knee (12/16/24) ?Z96.652 - Presence of left artificial knee joint (ICD-10) History of arthroscopy of left knee ?Z98.890 - Other specified postprocedural states (ICD-10) History of cardioversion (07/07/23) ?Z92.89 - Personal history of other medical treatment (ICD-10) History of esophagogastroduodenoscopy (EGD) (10/14/13) ?Z98.890 - Other specified postprocedural states (ICD-10) History of tonsillectomy and adenoidectomy ?Z90.89 - Acquired absence of other organs (ICD-10) H/O umbilical hernia repair (06/20/17) ?Z98.890 - Other specified postprocedural states (ICD-10) ?Z87.19 - Personal history of other diseases of the digestive system (ICD-10) Social History Narrative: She lives with her . 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 She lives in a split-level home and has stairs to go up to the kitchen and living room and did go down to the lower level where she plans to live as she recovers from surgery. She has a bedroom and bathroom on that level. She drinks alcohol about 4 times a week. She does not smoke. Code status is full What is your current living situation?: I presently have a place to live Problems where you live: no known problems In the past 12 months, utilities in danger of being shut off: no In past 12 months, lack of transportation kept you from medical appts, meetings, work, or getting things needed for daily living: no In the past 12 mos, have been you worried that your food would run out before you had money to buy more?: never true In the past 12 mos, the food you bought just didn't last and you didn't have money to buy more?: never true Smoking Status: Never smoker Do you use any of these nicotine containing products: None Second hand tobacco smoke exposure: No How often do you have a drink containing alcohol: 4 or more times a week Alcohol type: beer and wine How many standard drinks containing alcohol do you have on a typical day: 1 or 2 AUDIT-C Alcohol total score: 4 Non-prescribed substance use: denies use Caffeine: Yes How often does anyone, including family, friends and others, physically hurt you : never How often does anyone, including family, friends and others, insult or talk down to you: never How often does anyone, including family, friends and others, threaten you with harm: never How often does anyone, including family, friends and others, scream or curse at you: never service: No Meds Home Medications and Allergies Home Medications ?Medication ?Instructions ?Recorded ?Confirmed ?Type apixaban 5 mg tablet (Eliquis) 5 mg PO BID 11/26/24 History omeprazole 20 mg capsule,delayed 20 mg PO DAILY 02/24/25 History release acetaminophen 500 mg capsule 500 - 1,000 mg (1 - 2 x 5 00 mg) PO 12/17/24 02/24/25 Rx Q6H PRN #100 caps ergocalciferol (vitamin D2) 400 400 unit PO DAILY 10/1502/24/25 History unit capsule oxycodone 5 mg tablet 2.5 - 5 mg PO Q4-6H PRN pain 02/19/25 02/24/25 History Allergies Allergy/AdvReac Type Severity Reaction Status Date / Time No Known Drug Allergies Allergy Verified 02/24/25 09:57 Exam Narrative: Exam Narrative: General: No acute distress. Awake alert oriented x3. HEENT: Normocephalic atraumatic, pupils equally round and reactive to light and accommodation. Oropharynx clear. Mucous membranes are moist. No cervical lymphadenopathy or thyromegaly. No JVD. Cardiovascular: Regular rate and rhythm. No murmurs, gallops, or rubs. Chest: No increased work of breathing. Clear to auscultation bilaterally. No crackles or wheezes. Abdomen: Bowel sounds present. Soft, nondistended, nontender. No hepatosplenomegaly or masses. Extremities: Right knee bandage is clean, dry, and intact. No edema, no cyanosis or clubbing. Skin: No jaundice, no pallor, no rashes on visible skin. Const: Vital Signs, click to edit/add: Vital Signs - 24 hr 02/24/25 10:30 02/24/25 10:46 02/24/25 10:50 Temperature 98.9 F Pulse Rate 91 86 87 Pulse Rate [Pulse Oximeter] Respiratory Rate 16 16 16 Blood Pressure 160/87 H 145/74 H 138/73 Blood Pressure [Ri ght Arm] Pulse Oximetry 96 97 100 Oxygen Delivery Me thod Room Air Nasal Cannula Nasal Cannula 02/24/25 13:20 02/24/25 13:25 02/24/25 13:30 Temperature 98.6 F Pulse Rate 72 74 75 Pulse Rate [Pulse Oximeter] Respiratory Rate 14 14 14 Blood Pressure 94/67 98/60 104/67 Blood Pressure [Ri ght Arm] Pulse Oximetry 100 97 97 Oxygen Delivery Me thod Room Air Room Air Room Air 02/24/25 13:35 02/24/25 13:40 02/24/25 13:45 Temperature Pulse Rate 77 78 77 Pulse Rate [Pulse Oximeter] Respiratory Rate 16 16 16 Blood Pressure 113/67 122/72 124/74 Blood Pressure [Ri ght Arm] Pulse Oximetry 96 97 98 Oxygen Delivery Me thod Room Air Room Air Room Air 02/24/25 13:50 02/24/25 13:55 02/24/25 14:00 Temperature Pulse Rate 77 76 73 Pulse Rate [Pulse Oximeter] Respiratory Rate 16 16 16 Blood Pressure 127/77 134/76 132/73 Blood Pressure [Ri ght Arm] Pulse Oximetry 97 97 97 Oxygen Delivery Me thod Room Air Room Air Room Air 02/24/25 14:05 02/24/25 14:10 02/24/25 14:16 Temperature 97.3 F L 97 F L Pulse Rate 75 72 Pulse Rate [Pulse Oximeter] 72 Respiratory Rate 16 16 14 Blood Pressure 134/76 127/74 Blood Pressure [Ri ght Arm] 142/80 H Pulse Oximetry 95 97 97 Oxygen Delivery Me thod Room Air Room Air Room Air 02/24/25 14:30 Temperature 97 F L Pulse Rate Pulse Rate [Pulse Oximeter] 73 Respiratory Rate 14 Blood Pressure Blood Pressure [Ri ght Arm] 147/83 H Pulse Oximetry 97 Oxygen Delivery Me thod Room Air Assessment and Plan Assessment and plan (1) Status post left knee replacement: Problem comment: - 02/24/25 Dr. Hearn - routine post op cares, PT, OT - VTE prophylaxis with Eliquis as per her usual for atrial fibrillation - planning to discharge home with her daughter tomorrow Status: Acute (2) Osteoarthritis of right knee: Problem comment: Severe, with significant [id number] articulation medial aspect of the patellofemoral compartment Status: Chronic (3) CLL (chronic lymphocytic leukemia): Problem comment: Asymptomatic at this time, chronic leukocytosis Status: Chronic (4) Paroxysmal atrial flutter: Problem comment: Eliquis 5 mg twice daily, discussed with Ortho: restart Eliquis tomorrow morning Status: Chronic
--- NOTE | 2025-02-24 15:25 | PC.NURSE ---
[id number]: Pt. brought from the PACU. Pt. AOx3. No nausea. Afebrile. Daughter is bedside. Pt. reports pain is worst than last time. PRN pain med given. Pt. reports improved pain.
[2025-02-24] MEDS: CEFAZOLIN 1 GM in 0.9 % SODIUM CHLORIDE Mini-bag 100 ML IVPB (17:12)
[2025-02-24] MEDS: ONDANSETRON 2 MG/ML inj 4 MG IVP ×2 (17:47→22:23)
--- NOTE | 2025-02-24 19:22 | PC.NURSE ---
Nursing Care Hours: [id number] Pt this shift calm and cooperative, alert and oriented. VSS. Pain treated with IV meds, decreasing from 5/10 to 3/10. Ice in place. Pt up in chair with assist x2 using walker and gait belt. Nausea while sitting up, treated with IV meds. Pt tolerated dinner. Incontinent void prior to moving to chair changed. Pedal pulses present, bandage CDI.
[2025-02-24] MEDS: SENNOSIDES 1 TAB TABLET 2 TAB PO (20:44)
[2025-02-25] MEDS: CEFAZOLIN 1 GM in 0.9 % SODIUM CHLORIDE Mini-bag 100 ML IVPB ×2 (01:24→08:28)
[2025-02-25 02:11] VITALS: BP 114/63; PULSE 76; RESP 17; TEMP 36.5; O2SAT 93
[2025-02-25] MEDS: ACETAMINOPHEN 500 MG TABLET 1000 MG PO ×2 (04:44→10:41)
--- NOTE | 2025-02-25 05:46 | PC.NURSE ---
Shift note ([id number]): Patient pleasant, alert and oriented. Ambulates with walker, gait belt and assist of one. Saline locked. Tolerating regular diet. Given PRN Zofran for c/o nausea. Given scheduled Tylenol and PRN oxycodone for c/o right knee pain. Ice pack applied. Dressing clean, dry and intact. No signs of infection.?CMS intact.
[2025-02-25] MEDS: OMEPRAZOLE 20 MG CAPSULE DR PO (06:11)
[2025-02-25 06:42] LABS: Hematocrit 31.7 % (33.0-51.0); Hemoglobin* 10.1 gm/dL (12.0-16.0); Immature Granulocytes Pct Auto 0.3 %; Mean Corpuscular HGB Conc 32 gm/dL (32-36); Mean Corpuscular Hemoglobin 29 pg (26-34); Mean Corpuscular Volume 91 fL (80-100); RDW Coefficient of Variation % 13.8 % (11.5-15.5); Red Blood Count 3.50 m/uL (4.00-5.20)
[2025-02-25 07:33] LABS: Blood Urea Nitrogen* 17 mg/dL (7-30); Creatinine* 0.6 mg/dL (0.5-1.5); Est. Creatinine Clearance* 41.40; Estimated Glomerular Filt Rate 97 ml/min; Potassium* 4.1 mmol/L (3.6-5.1); Sodium* 131 mmol/L (135-149)
[2025-02-25 07:43] LABS: Immature Granulocytes Abs Auto 0.10 K/uL (0.00-0.30); Lymphocytes Absolute Auto 33.80 K/uL (0.90-2.90); White Blood Count* 43.41 K/uL (4.50-11.00)
[2025-02-25 07:55] VITALS: BP 117/62; PULSE 82; RESP 16; TEMP 36.8; O2SAT 93; O2SAT 97
[2025-02-25 08:06] LABS: Slide Review Reflex Yes
[2025-02-25 08:07] LABS: Slide Review Acceptable Review (Acceptable)
--- NOTE | 2025-02-25 08:15 | PC.SOCIAL ---
Discharge planning: SW met with patient to determine if there are any concerns or supports needed for home. Patient states that she has her and two daughters who are here to support her. Patient reports that they have everything that they need. SW to assist if needs arise.
[2025-02-25] MEDS: APIXABAN 5 MG TABLET PO (08:26)
[2025-02-25] MEDS: SENNOSIDES 1 TAB TABLET 2 TAB PO (08:27)
[2025-02-25] MEDS: ONDANSETRON 2 MG/ML inj 4 MG IVP (08:28)
--- NOTE | 2025-02-25 08:55 | P.ORPN_ITS ---
Subjective Subjective Time Seen by Provider: 07:50 Date Seen: 02/25/25 Principal diagnosis: Day 1 s/p right TKA Interval history: Tawanna is doing well this morning and is resting comfortably in her recliner. She c/o 3 out of 10 right knee pain that is well managed with current scheduled and PRN oral pain medications and ice. Reports mild nausea overnight, but this has resolved this morning. Denies: postop chest pain, SOB, fever, chills, n umbness/tingling distally. No acute events overnight. Patient has not yet had a bowel movement and reports no flatulence yet. Ortho Exam Narrative Exam Narrative: Incision/Dressing: Dressing appears clean and dry. No drainage present. Mepilex intact. Right knee appears moderately swollen but supple with no obvious erythema, fluctuance or excessive warmth. No erythematous streaking. Ecchymosis present lateral to Mepilex. Warmth around the wound is appropriate. Ice is being utilized as needed. CMS: Intact distally with 2+ Dorsalis pedis and Posterior Tibial pulses. 5/5 motor strength dorsal and plantar flexion. Confirmed sensation distally. Unable to perform straight leg raise. Calf: Bilateral calves are supple, with no swelling, pain, tenderness, erythema, discoloration or coolness to the touch. Constitutional: Patient is alert and oriented x3. Patient is in no acute distress and converses without labored breathing. Patient is able to make decisions and demonstrates good insight. Patient is pleasant and cooperative. Affect is full range and appropriate for the circumstances. Const Vital Signs, click to edit/add: Vital Signs - 24 hr 02/24/25 10:30 02/24/25 10:46 02/24/25 10:50 Temperature 98.9 F Pulse Rate 91 86 87 Pulse Rate [Pulse Oximeter] Respiratory Rate 16 16 16 Blood Pressure 160/87 H 145/74 H 138/73 Blood Pressure [Right Arm] Pulse Oximetry 96 97 100 Oxygen Delivery Method Room Air Nasal Cannula Nasal Cannula 02/24/25 13:20 02/24/25 13:25 02/24/25 13:30 Temperature 98.6 F Pulse Rate 72 74 75 Pulse Rate [Pulse Oximeter] Respiratory Rate 14 14 14 Blood Pressure 94/67 98/60 104/67 Blood Pressure [Right Arm] Pulse Oximetry 100 97 97 Oxygen Delivery Method Room Air Room Air Room Air 02/24/25 13:35 02/24/25 13:40 02/24/25 13:45 Temperature Pulse Rate 77 78 77 Pulse Rate [Pulse Oximeter] Respiratory Rate 16 16 16 Blood Pressure 113/67 122/72 124/74 Blood Pressure [Right Arm] Pulse Oximetry 96 97 98 Oxygen Delivery Method Room Air Room Air Room Air 02/24/25 13:50 02/24/25 13:55 02/24/25 14:00 Temperature Pulse Rate 77 76 73 Pulse Rate [Pulse Oximeter] Respiratory Rate 16 16 16 Blood Pressure 127/77 134/76 132/73 Blood Pressure [Right Arm] Pulse Oximetry 97 97 97 Oxygen Delivery Method Room Air Room Air Room Air 02/24/25 14:05 02/24/25 14:10 02/24/25 14:16 Temperature 97.3 F L 97 F L Pulse Rate 75 72 Pulse Rate [Pulse Oximeter] 72 Respiratory Rate 16 16 14 Blood Pressure 134/76 127/74 Blood Pressure [Right Arm] 142/80 H Pulse Oximetry 95 97 97 Oxygen Delivery Method Room Air Room Air Room Air 02/24/25 14:30 02/24/25 14:45 02/24/25 15:00 Temperature 97 F L 96.9 F L 96.9 F L Pulse Rate Pulse Rate [Pulse Oximeter] 73 71 71 Respiratory Rate 14 14 14 Blood Pressure Blood Pressure [Right Arm] 147/83 H 144/85 H 136/79 Pulse Oximetry 97 97 99 Oxygen Delivery Method Room Air Room Air Room Air 02/24/25 15:00 02/24/25 15:00 02/24/25 15:15 Temperature Pulse Rate Pulse Rate [Pulse Oximeter] 69 Respiratory Rate 14 Blood Pressure Blood Pressure [Right Arm] 127/70 Pulse Oximetry 97 97 99 Oxygen Delivery Method Room Air Room Air 02/24/25 16:00 02/24/25 16:30 02/24/25 17:00 Temperature Pulse Rate Pulse Rate [Pulse Oximeter] 71 73 73 Respiratory Rate 14 14 Blood Pressure Blood Pressure [Right Arm] 139/79 142/84 H 140/70 H Pulse Oximetry 99 98 Oxygen Delivery Method Room Air Room Air 02/24/25 18:00 02/24/25 19:00 02/24/25 20:36 Temperature Pulse Rate Pulse Rate [Pulse Oximeter] 76 77 Respiratory Rate 14 16 Blood Pressure Blood Pressure [Right Arm] 116/72 139/78 Pulse Oximetry 99 100 100 Oxygen Delivery Method Room Air Room Air 02/24/25 20:36 02/24/25 20:36 02/24/25 22:29 Temperature 97.6 F Pulse Rate Pulse Rate [Pulse Oximeter] 95 Respiratory Rate 16 16 Blood Pressure Blood Pressure [Right Arm] 148/75 H Pulse Oximetry 100 100 96 Oxygen Delivery Method Room Air Room Air 02/24/25 22:29 02/24/25 22:29 02/25/25 02:11 Temperature 97.7 F 97.7 F Pulse Rate Pulse Rate [Pulse Oximeter] 79 76 Respiratory Rate 17 17 17 Blood Pressure Blood Pressure [Right Arm] 120/73 114/63 Pulse Oximetry 96 96 93 Oxygen Delivery Method Room Air Room Air Room Air 02/25/25 07:55 02/25/25 07:55 02/25/25 07:55 Temperature Pulse Rate Pulse Rate [Pulse Oximeter] 82 Respiratory Rate 16 16 Blood Pressure Blood Pressure [Right Arm] Pulse Oximetry 93 93 Oxygen Delivery Method Room Air 02/25/25 07:55 Temperature 98.2 F Pulse Rate Pulse Rate [Pulse Oximeter] 82 Respiratory Rate 16 Blood Pressure Blood Pressure [Right Arm] 117/62 Pulse Oximetry 97 Oxygen Delivery Method Room Air Assessment and Plan Assessment and plan (1) Status post right knee replacement: Problem details: DOS: 02/24/25, Dr. Hearn Status: Acute Assessment and Plan: - Complete 23 hour perioperative antibiotics. - PT/OT consults for education and assistance. - Weight bear as tolerated with a walker for assistance. - Prescribed analgesics as needed. Patient is content with current narcotic medications. Minimize narcotic pain medication use; wean off and discontinue as soon as possible. - DVT prophylaxis: resume Eliquis. Also, frequent ambulation and ankle pumps when sedentary. - Social consult for discharge planning. - Anticipate patient will be discharged to home later today if the patient remains medically stable, pain is controlled and is safe with ambulation. - Follow-up with Blade Barone PA-C on 03/07/25. - Return to clinic in [address] Hearn. - Phone Orthopedics with any questions or concerns. [phone]
[2025-02-25 10:47] VITALS: BP 115/67; PULSE 87; O2SAT 99
--- NOTE | 2025-02-25 11:10 | PC.NURSE ---
Nursing Care Hours: [id number] Pt this shift calm and cooperative, alert and oriented. Pain treated with PO meds, tolerating well. Nausea treated with IV meds prior to working with PT/OT. Pedal pulses present, CMS intact. VSS. Went over dc instructions with pt and daughter. All questions and concerns addressed. Pt wheeled out to vehicle in stable condition.
== END 2025-02-25 11:05 | disposition home or self-care (01) ==
LOC: OR 09:40 → MEDSURG 09:41
PROVIDERS: PCP Physician Assistant; Visit Provider Orthopaedic Surgery Sports Medicine
PROC: (CPT 27447; principal; 2025-02-24 11:00)
DX: M17.11 Unilateral primary osteoarthritis, right knee (principal); G89.18 Other acute postprocedural pain; I48.92 Unspecified atrial flutter; Z79.01 Long term (current) use of anticoagulants; I48.91 Unspecified atrial fibrillation; C91.10 Chronic lymphocytic leukemia of B-cell type not having achieved remission; M81.0 Age-related osteoporosis without current pathological fracture; Z96.652 Presence of left artificial knee joint
CPT/HCPCS: 27447; 01402; 36415; 64447; 64454; 73560; 76942; 82565; 84132; 84295; 84520; 85025; 97110; 97116; 97161; 97165; 97530; 97535; 99100; A9270; C1776; J0665; J0690; J1100; J1171; J2250; J2371; J2405; J2704; J3010; J7120

== ENCOUNTER 2025-03-05 09:21 | Day surgery (SDC) | payer MEDICARE, SELFPAY ==
[2025-03-05] VITALS (19 sets, daily range): BP systolic 144–181; BP diastolic 78–99; PULSE 82–100; RESP 16; TEMP 36.7–37.3; O2SAT 95–98; BMI 19.5
[2025-03-05] MEDS: VANCOMYCIN 100 MG/ML INJ 1000 MG TOPICAL (09:15)
[2025-03-05] MEDS: SODIUM CHLORIDE 0.9 % (FLUSH) 10 ML SYRINGE IVF (10:10)
[2025-03-05] MEDS: LACTATED RINGERS 1000 ML 1,000 ML 100 ML IV (10:10)
--- NOTE | 2025-03-05 10:30 | W.PM.H&PU ---
History & Physical Update History & Physical Update H&P Reviewed and patient assessed: No changes noted
[2025-03-05] MEDS: TRANEXAMIC ACID 100 MG/ML INJ 1000 MG IV (11:50)
--- NOTE | 2025-03-05 13:20 | W.ANESCHARGE ---
Anesthesia Charges Start Date/Time Anesthesia Start Date: 03/05/25 Anesthesia Start Time: 11:39 Stop Date/Time Anesthesia Stop Date: 03/05/25 Anesthesia Stop Time: 13:17 Summary Extremes of Age - Over 70 or under 1: MDA Coding CPT Codes CPT Codes: ANESTH KNEE JOINT SURGERY - 33774 ([id number]) QK - NEWS INTERNSHIP 2-4 CNCRNT ANES PROC, QX - STATIONARY PLANT OPERATORS SVC W/ MD MED DIRECTION, P2 - PATIENT W/MILD SYST DISEASE Additional Codes: Summary - Extremes of Age - Over 70 or under 1: MDA ([id number])
--- NOTE | 2025-03-05 13:24 | P.ANES_ITS ---
Anesthesia Charges Start Date/Time Anesthesia Start Date: 03/05/25 Anesthesia Start Time: 11:39 Stop Date/Time Anesthesia Stop Date: 03/05/25 Anesthesia Stop Time: 13:17 Coding CPT Codes CPT Codes: ANESTH KNEE JOINT SURGERY - 63499 ([id number]) P2 - PATIENT W/MILD SYST DISEASE, QK - MATERIAL STRESS TESTER 2-4 CNCRNT ANES PROC, QX - BREAKER ENGINEER SVC W/ MD MED DIRECTION
--- NOTE | 2025-03-05 13:24 | W.ANESCHARGE ---
Anesthesia Charges Start Date/Time Anesthesia Start Date: 03/05/25 Anesthesia Start Time: 11:39 Stop Date/Time Anesthesia Stop Date: 03/05/25 Anesthesia Stop Time: 13:17 Coding CPT Codes CPT Codes: ANESTH KNEE JOINT SURGERY - 06224 ([id number]) P2 - PATIENT W/MILD SYST DISEASE, QK - ELEVATORS INSPECTOR 2-4 CNCRNT ANES PROC, QX - AUTOMATION AND CONTROL ENGINEER SVC W/ MD MED DIRECTION
[2025-03-05] MEDS: ACETAMINOPHEN INJ 1,000 MG/100 ML VIAL 400 MG IVPB (13:53)
[2025-03-05] MEDS: ONDANSETRON 2 MG/ML inj 4 MG IVP (14:25)
--- NOTE | 2025-03-05 14:32 | SUR.PHASEII ---
On entry to Phase II, patient states pain remains 5/10. Not sure she could tolerating eating - unsure if it's hunger or nausea. States in her previous surgery she needed Zofran. Zofran administered-see eMAR. Patient asking for family to wait in lobby at this time. Family notified of patient's request at this time. Patient resting with water and crackers available. Call light within reach. Patient states pain 5/10 but trending down.
--- NOTE | 2025-03-05 15:58 | SUR.PHASEII ---
1520: Patient up to bedside commode with gait belt and stand by assist of 2. Patient voided. Dressed and transferred to recliner with gait belt, walker, and stand by assist of 2. Patient states pain and nausea have improved. Repeat BP145/88.
--- NOTE | 2025-03-06 08:29 | P.ORPRC_ITS ---
Procedure Note Date of procedure: 03/05/25 Procedure: PREOPERATIVE DIAGNOSIS: 1. Right knee hematoma formation and persistent drainage after TKA 02/24/2025 2. Right knee stiffness status post TKA POSTOPERATIVE DIAGNOSIS: 1. Right knee hematoma formation and persistent drainage after TKA 02/24/2025 2. Right knee stiffness/arthrofibrosis status post TKA PROCEDURE: 1. Right knee incision and drainage superficial hematoma and deep hemarthrosis after TKA 02/25/2000 2. Right knee manipulation under anesthesia SURGEON: Stanislav Hearn MD. CERTIFIED MORTICIAN: PATRICIA Waldron - Of note, a skilled speech language pathology assistant was critical for this case to aid in patient positioning, tissue retraction, limb man ipulation/positioning, and closure. ANESTHESIA: Spinal anesthetic IMPLANTS: No new implants today. CULTURES: A single culture swab was obtained both superficial and deep to the retinaculum of this right knee. TOURNIQUET: 30 minutes at 250 torr EBL: 100 mL COMPLICATIONS: None evident INDICATIONS: The patient is a pleasant 69-year-old female [facility] who underwent right TKA 02/24/2025. No specific concerns encountered during the procedure. She did well in the initial postoperative time for few days. However, on postop day 4 she noted increasing drainage overnight upon awakening in the morning out the incision site. She was seen in clinic that day with a small amount of drainage (sanguinous) from the mid incision site. The wound was cleansed with ChloraPrep and Steri-Stripped. She continue to monitor this over the weekend. She noted it did well for a few more days, but then had increasing drainage again approximately postop day 7. Given the persistent drainage and hematoma formation/hemarthrosis, and concern for infection development, surgery was indicated to drain the hematoma and thoroughly irrigate the knee. FINDINGS: Hematoma superficially relatively small. Hemarthrosis deep to the retinaculum moderate in size. There was active bleeding still occurring seemingly coming from the posterior aspects of the knee around the posterior capsule. There was some small bleeding throughout the medial trough for the vastus medialis had been lifted from the fascia, and minimally throughout the remaining portions of the knee. Knee range of motion with gravity preop was 0-80?. After completing the procedure, a manipulation under anesthesia was performed. She now she was 0-130 degrees smoothly. DESCRIPTION OF PROCEDURE: Following a thorough discussion of risks, benefits, and alternatives consent was obtained and the right knee was marked. The patient was brought to the operating room and placed supine on the operating table. Induction of anesthesia was undertaken. 1 g IV Ancef and 1 g tranexamic acid was administered within 1 hr of incision preoperatively. Proper time-out was performed identifying proper patient, site, procedure. The operative extremity was prepped and draped in the appropriate sterile fashion using ChloraPrep after the patient was positioned supine with all bony prominences well padded. The previous incision was reopened sharply. The Monocryl sutures were removed. A thorough irrigation and debridement was performed in the subcutaneous layer. 3 L of normal saline were utilized. Debridement was performed with rongeur and curette. Culture sample was obtained of the superficial layer. Small hematoma was encountered. The deep retinaculum was then opened and the Stratafix suture removed. A larger hemarthrosis was encountered. A culture taken of this deeper layer also completed. Again thorough irrigation normal saline was performed. At this point, tourniquet was deflated and active bleeding was identified welling up from the posterior capsular region. We did not remove the polyethylene component as a variety of measures including temporary packing seem to help achieve hemostasis. Scrubbing of the tissue with chlorhexidine sponge was then performed. Hemostasis was achieved utilizing a combination of packing temporarily, Bovie cautery, and Perry topical hemostatic agent. But prior to the wrist the application, 3 minute Betadine soak was performed followed by 3 L normal saline irrigation again. After the Perry was applied and hemostasis confirmed, vancomycin powder (2 g vial) was sprinkled both within the deep and superficial layers of the knee. Again at this juncture hemostasis was confirmed and no further welling up of active bleeding was encountered. A manipulation under anesthesia was performed with gentle manipulation allowing us to restore range of motion from 0-130 degrees. Closure performed with 0 PDS and #0 Stratafix for the quad tendon/retinaculum. 2-0 PDS for the subcutaneous and 2-0 Stratafix for subcuticular closure. Silver Mepilex dressing was applied and the patient was awoken from anesthesia and transferred the PACU in stable condition. A skilled speech language pathology assistant was critical for this case to aid in patient positioning, tissue retraction, bone exposure, limb manipulation/positioning, patient safety, and closure. PLAN: 1. Weight bear as tolerated operative extremity. 2. ROM as tolerated. 3. Ice. 4. PT/OT consults for ambulation assistance/mobility education. 5. Social work consult for discharge planning. 6. DVT prophylaxis with at SCDs and Eliquis resumption (postop day 1 evening dose).
== END 2025-03-05 16:16 | disposition home or self-care (01) ==
LOC: OR 09:23
PROVIDERS: PCP Physician Assistant; Visit Provider Orthopaedic Surgery Sports Medicine
PROC: (CPT 27301; principal; 2025-03-05 10:45)
DX: M96.840 Postprocedural hematoma of a musculoskeletal structure following a musculoskeletal system procedure (principal); T84.82XA Fibrosis due to internal orthopedic prosthetic devices, implants and grafts, initial encounter; Z96.651 Presence of right artificial knee joint
CPT/HCPCS: 27301; 27570; 01400; 87070; 87075; 87205; 99100; A9270; J0131; J0690; J1100; J1171; J2405; J2704; J3010; J3373; J3490; J7120